=== PATIENT | male | born 1965 | race Caucasian/White ===

== ENCOUNTER 2025-08-03 14:51 | Emergency (ER) | payer MEDICAID ==
[~2025-08-03] VITALS: Ht 182.9 cm; Wt 80.0 kg
--- NOTE | 2025-08-03 15:35 | RADIOLOGY REPORT ---
INDICATION: back pain TECHNIQUE: 4 views of the lumbar spine were obtained. COMPARISON: None FINDINGS: There are no acute fractures or subluxations. Grade 1 anterolisthesis of L5 on S1. Mild degenerative anterior osteophyte formation at multiple levels. IMPRESSION: No acute fracture or subluxation.
--- NOTE | 2025-08-03 15:46 | Physician Documentation ---
History of Present Illness ~ Chief Complaint: Back Pain Stated Complaint: BACK PAIN Time Seen by MD: 16:09 HPI MSE: This is a 59-year-old male that presents to the emergency department for evaluation of lumbosacral pain times several days. Patient denies incontinence of bowel or bladder numbness or tingling at this time. Maximum hurting for approximately 2-3 days at this time. Denies taking any medication to help with discomfort. Medication Reconciliation Allergies: Coded Allergies: No Known Allergies (Unverified , 08/03/25) Review of Systems ROS As stated above in the HPI, otherwise all systems are reviewed and negative. Physical Exam Physical Exam Vital Signs: Temperature: 97.3, Source: Oral, Heart Rate: 89, Respiratory Rate: 20, BP: 107/71, Pulse Oximetry: 99, Weight: 80.000 Oxygen Flow Rate: 0 Physical Exam VITALS: Reviewed and as above. GENERAL: Alert, no apparent distress. HEENT: Normocephalic, atraumatic, PERRL, EOMI, dry mucosa, no erythema RESPIRATORY: Lungs clear, normal breath sounds, no respiratory distress. CHEST: No accessory muscle use, no retractions CV: Regular rate, rhythm, no edema, no murmur, No: JVD GI: Soft, non-tender, bowels sounds present, no rebound, guarding, or rigidity BACK: No CVA tenderness, or swelling MUSCULOSKELETAL No deformities, no edema, positive leg raise consistent with sciatica or lumbosacral sprain. SKIN: Warm and dry, no rash NEURO: Oriented x4, No motor or sensory deficit PSYCH: Normal mood and affect, no agitation Progress Results/Orders Results/Orders Vital Signs 08/03/25 14:57 Temp 97.3 Pulse 89 Resp 20 B/P (MAP) 107/71 Pulse Ox 99 O2 Flow Rate 0 Medical Decision Making Findings This patient presents with back pain most consistent with lumbosacral sprain. Differential diagnoses includes lumbago versus musculoskeletal spasm / strain versus sciatica. Less likely sciatica as straight leg raise test was negative. No back pain red flags on history or physical. Presentation not consistent with malignancy (lack of history of malignancy, lack of B symptoms), fracture (no trauma, no bony tenderness to palpation), cauda equina (no bowel or urinary incontinence/retention, no saddle anesthesia, no distal weakness), AAA, viscus perforation, osteomyelitis or epidural abscess (no IVDU, vertebral tenderness), renal colic, pyelonephritis (afebrile, no CVAT, no urinary symptoms). Negative for any abnormal findings for any acute processes at this time. Patient will be given dose of Toradol for musculoskeletal pain and Tylenol for discomfort. Patient will follow up with primary care provider. Patient will return to the emergency department with any worsening of his current symptoms for any additional concerning symptoms we discussed here today i.e. inability control bowel or bladder increased pain inability to walk numbness tingling or concerning symptoms. Differential Dx:Considerations: Include: AAA, Aortic dissection, Appendicitis, Bowel obstruction, Cholelithiasis, Cholangitis, DJD, Fracture, Hepatitis, HNP, Musculoskeletal pain, Pancreatitis, Pyelonephritis, Renal infarction, Strain, Urinary obstruction, Urolithiasis, Urinary tract infection, Other Departure Disposition: HOME / SELF CARE / HOMELESS Impression: Primary Impression: Low back pain Additional Impressions: Strain of lumbar region Lumbosacral strain Condition: Stable Discharge Instructions: Acute Back Pain, Adult, Lumbosacral Strain, Sciatica Additional Instructions: This patient presents with back pain most consistent with lumbosacral sprain. Differential diagnoses includes lumbago versus musculoskeletal spasm / strain versus sciatica. Less likely sciatica as straight leg raise test was negative. No back pain red flags on history or physical. Presentation not consistent with malignancy (lack of history of malignancy, lack of B symptoms), fracture (no trauma, no bony tenderness to palpation), cauda equina (no bowel or urinary incontinence/retention, no saddle anesthesia, no distal weakness), AAA, viscus p erforation, osteomyelitis or epidural abscess (no IVDU, vertebral tenderness), renal colic, pyelonephritis (afebrile, no CVAT, no urinary symptoms). Negative for any abnormal findings for any acute processes at this time. Patient will be given dose of Toradol for musculoskeletal pain and Tylenol for discomfort. Patient will follow up with primary care provider. Patient will return to the emergency department with any worsening of his current symptoms for any additional concerning symptoms we discussed here today i.e. inability control bowel or bladder increased pain inability to walk numbness tingling or concerning symptoms. Referrals: NO PRIMARY CARE PROVIDER (PCP) Education Educated: Patient Educated regarding: diagnosis, treatment, need for follow up [facility] Aug 03, 2025 15:46
[2025-08-03] MEDS: ketorolac trometh 15mg/ml vial 15 MG/ML ML IM ONE (17:21)
[2025-08-03 17:35] VITALS: BP 109/70; PULSE 78; RESP 16; TEMP 97.3; O2SAT 99
== END 2025-08-03 17:37 | disposition home or self-care (01) ==
LOC: ER 14:56
DX: S39.012A Strain of muscle, fascia and tendon of lower back, initial encounter (principal); X58.XXXA Exposure to other specified factors, initial encounter; Y93.89 Activity, other specified; Y92.89 Other specified places as the place of occurrence of the external cause; Y99.8 Other external cause status
CPT/HCPCS: 72100; 96372; 99283; J1885

== ENCOUNTER 2025-08-05 06:31 | Emergency (ER) | payer MEDICAID ==
[~2025-08-05] VITALS: Ht 182.9 cm; Wt 75.0 kg
--- NOTE | 2025-08-05 07:03 | Physician Documentation ---
History of Present Illness ~ Chief Complaint: Back Pain Stated Complaint: HIP PAIN M ALS Time Seen by MD: 06:57 Mode of Arrival: EMS HPI 59-year-old male presenting with back pain The patient was seen here in the emergency department 2 days ago for similar symptoms, was felt to have musculoskeletal back pain, was treated with IM Toradol and Tylenol. He returns today by EMS. He reports severe left-sided low back pain. He is not able to stand up or walk. It is 10/10. It does radiate down the back of his buttocks and thigh to the knee. He reports intermittent numbness to his foot. Denies any trauma. No fevers. Medication Reconciliation Allergies: Coded Allergies: No Known Allergies (Unverified , 08/05/25) Scheduled Cyclobenzaprine* (Cyclobenzaprine*), 1 TAB PO TID Lidocaine (Lidoderm), 1 PATCH TOP DAILY Methylprednisolone (Medrol Dosepak), 0 PO UD Review of Systems Constitutional: Denies: fever Neurological: Reports: left sided numbness Musculoskeletal: Reports: back pain Physical Exam Physical Exam Vital Signs: Temperature: 97.9, Source: Oral, Heart Rate: 62, Respiratory Rate: 18, BP: 136/85, Pulse Oximetry: 99, Weight: 75.000 Oxygen Flow Rate: 0 Physical Exam General: This is an uncomfortable appearing middle-aged man lying on his side, not really moving HEENT: Atraumatic, oropharynx is moist Heart: Regular rate and rhythm, normal-appearing peripheral perfusion Lungs: normal work of breathing, normal oxygen saturation on room air Neck: The patient has significant tenderness on palpation of the paralumbar muscles bilateral, with no overlying rash Extremities: Warm and well-perfused. He reports mild subjective numbness to the left foot Neuro: Alert and oriented Psychiatric: Appears very uncomfortable and in mild distress Progress Results/Orders Results/Orders Completed Orders - MARCELA KISER MD Lidocaine 5% Patch (Lidoderm 5% Patch) (08/05/25 07:10) Ketorolac Trometh 15mg/Ml Vial (Toradol (08/05/25 07:10) Diazepam Inj (Valium Inj) (08/05/25 07:10) Urinalysis, Cult If Indicated (08/05/25 12:00) Acetaminophen 325mg Tablet (Tylenol Tabl (08/05/25 13:25) Cyclobenzaprine Tablet (Flexeril Tablet) (08/05/25 13:25) Vital Signs 08/05/25 08/05/25 08/05/25 08/05/25 06:31 06:40 07:23 07:30 Temp 97.9 Pulse 62 62 Resp 18 20 18 B/P (MAP) 136/85 116/64 (81) Pulse Ox 99 95 O2 Flow Rate 0 0 08/05/25 08/05/25 08/05/25 08/05/25 08:26 09:00 10:00 11:02 Pulse 50 60 60 53 Resp 16 18 18 14 B/P (MAP) 105/70 (82) 150/72 (98) 119/74 (89) 123/74 (90) Pulse Ox 97 94 96 99 O2 Flow Rate 3.0 0 0 0 08/05/25 08/05/25 12:00 13:38 Temp 97.9 Pulse 60 60 Resp 16 16 B/P (MAP) 137/67 (90) 137/67 Pulse Ox 94 96 O2 Flow Rate 0 Laboratory Tests Test 08/05/25 12:16 Urine Specimen Description Cln catch midstream Urine Color Yellow Urine Clarity Clear Urine pH 6.0 Urine Specific [place] 1.015 Urine Protein Negative Urine Glucose (UA) Negative Urine Ketones Negative Urine Occult Blood Negative Urine Nitrite Negative Urine Bilirubin Negative Urine Urobilinogen 1.0 Urine Leukocyte Esterase Negative Urine Culture Indicated Not ind Volume Urine Centrifuged 10 ml Urine Comment Medical Decision Making Differential Diagnosis Differential diagnosis includes muscle spasm, sciatica, herniated disc, other radiculopathy. I doubt epidural abscess or cauda equina Assessment The patient presents with low back pain. He was seen recently for similar. On exam, this appears consistent with a low back muscle strain. He does not have any neurologic changes or other findings to suggest cauda equina or epidural abscess. He was given symptomatic treatment with good improvement. The patient then refused to get up and walk due to the pain, but after he was offered food he was noted to ambulate without significant limitation. There appears to be some component of secondary gain to his presentation related to his homelessness.. He will be discharged with a muscle relaxant and anti- inflammatories. Departure Time of Disposition: 12:38 Disposition: 01 HOME / SELF CARE / HOMELESS Impression: Primary Impression: Lumbosacral strain Condition: Improved Discharge Instructions: Lumbosacral Strain Referrals: NO PRIMARY CARE PROVIDER (PCP) Prescriptions Methylprednisolone (Medrol Dosepak) 4 Mg Tab.ds.pk 0 PO UD, #21 TAB 0 Refills take 6 Pills Day 1, 5 Pills Day 2, 4 Pills Day 3, 3 Pills Day 4, 2 Pills Day 5 and 1 pill Day 6 Prov: MARCELA KISER MD 08/05/25 Lidocaine (Lidoderm) 5 % Adh..patch 1 PATCH TOP DAILY for 10 Days, #10 PATCH 0 Refills may wear up to 12 hours Prov: MARCELA KISER MD 08/05/25 Cyclobenzaprine* (Cyclobenzaprine*) 10 Mg Tablet 1 TAB PO TID, #15 TAB 1 Refill Prov: MARCELA KISER MD 08/05/25 Education Educated: Patient Educated regarding: diagnosis, treatment, need for follow up Signature Scribe Signature: virgil Attestation: MARCELA Valentine MD Aug 05, 2025 07:03
[2025-08-05] MEDS: diazepam inj 5 MG/ML inj. IV ONE (07:23)
[2025-08-05] MEDS: ketorolac trometh 15mg/ml vial 15 MG/ML ML IV ONE (07:24)
[2025-08-05 12:24] LABS: LEUKOCYTE ESTERASE ,URINE NEGATIVE (Neg); NITRITES, URINE NEGATIVE (Neg); OCCULT BLOOD,URINE NEGATIVE (Neg)
[2025-08-05 12:30] LABS: UA COLLECTION TYPE CLN CATCH MIDSTREAM
[2025-08-05] MEDS ORDERED: CYCL-1 PO (12:46)
[2025-08-05] MEDS ORDERED: LIDO-52 TOP (12:46)
[2025-08-05] MEDS ORDERED: METH4TAB81 PO (12:47)
[2025-08-05 13:38] VITALS: BP 137/67; PULSE 60; RESP 16; TEMP 97.9; O2SAT 96
== END 2025-08-05 13:11 | disposition home or self-care (01) ==
LOC: ER 06:31
DX: S39.012A Strain of muscle, fascia and tendon of lower back, initial encounter (principal); X58.XXXA Exposure to other specified factors, initial encounter; Y93.89 Activity, other specified; Y92.89 Other specified places as the place of occurrence of the external cause; Y99.8 Other external cause status
CPT/HCPCS: 81003; 96374; 96375; 99285; J1885; J3360

== ENCOUNTER 2025-10-10 17:23 | Inpatient (IN) | payer MEDICAID ==
[~2025-10-10] VITALS: Ht 182.9 cm; Wt 86.2 kg
[~2025-10-10 17:23] MED LIST: CYCL-1 PO; LIDO-52 TOP; METH4TAB81 PO
--- NOTE | 2025-10-10 20:46 | Physician Documentation ---
History of Present Illness ~ General Chief Complaint: Abnormal Lab(s) Stated Complaint: INFECTION Time Seen by MD: 20:35 Mode of Arrival: EMS History of Present Illness Initial Comments Patient presents to the ER via EMS and says that he does not want to be triaged. Says that he came from [place] and had an elevated white count. He was told to that he was sent here for concerns over lower back osteomyelitis from the [place] where he has resident for the last two months Medication Reconciliation Allergies: Coded Allergies: No Known Allergies (Unverified , 10/10/25) Scheduled Cyclobenzaprine* (Cyclobenzaprine*), 1 TAB PO TID Lidocaine (Lidoderm), 1 PATCH TOP DAILY Methylprednisolone (Medrol Dosepak), 0 PO UD Review of Systems All Other Systems at this time: Reviewed and Negative Physical Exam Physical Exam Vital Signs: Temperature: 98.4, Source: Oral, Heart Rate: 92, Respiratory Rate: 16, BP: 132/87, Pulse Oximetry: 97, Weight: 86.200 Oxygen Flow Rate: 0 Progress Results/Orders Results/Orders Orders - JACK BUCKNER CLERK TO JUSTICE Ct Lumbar Spine (10/10/25 21:33) Culture Blood (10/10/25 22:21) Page Hospitalist (10/10/25 ) Completed Orders - JACK BUCKNER CLERK TO JUSTICE [place] (10/10/25 20:40) CMP (10/10/25 20:40) Cbc/Diff (10/10/25 20:40) [place] (10/10/25 21:25) Procalcitonin (10/10/25 21:28) Urinalysis, Cult If Indicated (10/10/25 21:28) Ct Lumbar Spine (10/10/25 21:33) Vancomycin*Pharmacy To Dose* (Vancomycin (10/10/25 22:20) Ceftriaxone 2gm/D5w 50ml Bag (Rocephin 2 (10/10/25 22:20) Morphine 4mg/Ml Inj. (Morphine Inj.) (10/10/25 22:25) Normal Saline 1000ml (0.9% Sodium Chlori (10/10/25 22:25) Morphine 2mg/Ml Inj. (Morphine Inj.) (10/10/25 22:45) Vital Signs 10/10/25 10/10/25 10/10/25 10/10/25 17:25 20:36 20:37 22:17 Temp 98.4 98.4 Pulse 86 92 79 Resp 16 16 16 B/P (MAP) 148/97 132/87 (102) 139/84 (102) Pulse Ox 98 97 98 O2 Flow Rate 0 0 0 10/10/25 23:01 Temp 98.4 Pulse 92 Resp 16 B/P (MAP) 139/87 (104) Pulse Ox 96 O2 Flow Rate 0 Laboratory Tests Test 10/10/25 20:52 10/10/25 21:54 10/10/25 22:07 White Blood Count 16.6 H Red Blood Count 4.06 L Hemoglobin 12.3 L Hematocrit 36.4 L Mean Corpuscular Volume 89.6 Mean Corpuscular Hemoglobin 30.2 Mean Corpuscular Hemoglobin Concent 33.7 Red Cell Distribution Width 17.2 H Platelet Count 532 H Mean Platelet Volume 6.6 L Neutrophils (%) (Auto) 54.0 Lymphocytes (%) (Auto) 29.6 Monocytes (%) (Auto) 14.4 H Eosinophils (%) (Auto) 1.1 Basophils (%) (Auto) 0.9 Neutrophils # (Auto) 9.0 H Lymphocytes # (Auto) 4.9 H Monocytes # (Auto) 2.4 H Eosinophils # (Auto) 0.2 Basophils # (Auto) 0.2 CBC Comment Sodium Level 139 Potassium Level 3.5 Chloride Level 100 Carbon Dioxide Level 31.6 Anion Gap 7 L Blood Urea Nitrogen 12 Creatinine 0.90 Estimated GFR/1.73 m2 86 BUN/Creatinine Ratio 13.3 Glucose Level 121 H Lactic Acid Level 0.9 0.7 Calcium Level 8.7 Total Bilirubin 0.8 Aspartate Amino Transf (AST/SGOT) 29 Alanine Aminotransferase (ALT/SGPT) 37 Alkaline Phosphatase 148 H Total Protein 7.9 Albumin 2.7 L Globulin 5.2 H Albumin/Globulin Ratio 0.5 L Procalcitonin 0.05 Chemistry Comments Urine Specimen Description Non-specified Urine Color Straw Urine Clarity Clear Urine pH 6.0 Urine Specific [place] <=1.005 Urine Protein Negative Urine Glucose (UA) Negative Urine Ketones Negative Urine Occult Blood Negative Urine Nitrite Negative Urine Bilirubin Negative Urine Urobilinogen 0.2 Urine Leukocyte Esterase Negative Urine Culture Indicated Not ind Volume Urine Centrifuged 10 ml Urine Comment Medical Decision Making Additional information obtaine: N/A Findings Patient presented with labs that were having not elevated white blood cell count. I ordered a CAT scan in his lumbar region which indicated a vicious spray osteomyelitis in his oak or a them that there of this time I am going to start him on oral antibiotics and pain med has been admitted to the hospital Differential Diagnosis t Departure Disposition: 09 ADMITTED INPATIENT Impression: Primary Impression: Abnormal laboratory test result Additional Impression: Osteomyelitis Referrals: NO PRIMARY CARE PROVIDER (PCP) Signature Scribe Signature: h Attestation: Scribed for Jack Buckner Shank Faker by Jack Sebastian NP . 10/10/25 23:06 JACK BUCKNER NP Oct 10, 2025 20:46
[2025-10-10 20:57] LABS: MEAN PLATELET VOLUME 6.6 FL (7.4-10.4)
[2025-10-10 20:59] LABS: RED CELL DISTRIBUTION WIDTH 17.2 % (11.5-14.5)
[2025-10-10 21:14] LABS: CREATININE 0.90 MG/DL (0.60-1.10); TOTAL CARBON DIOXIDE 31.6 MMOL/L (24-32); eCRCL 95 ML/MIN; eGFR 86 ML/MIN
--- NOTE | 2025-10-10 22:13 | RADIOLOGY REPORT ---
Exam: CT CT LUMBAR SPINE DATE OF SERVICE: 10/10/2025 09:40 PM HISTORY: concerns for osteo mylitis COMPARISON: DI LUMBAR SPINE LIMITED on DOS: 08/03/25 TECHNIQUE: Multiple axial CT images of the lumbosacral spine were obtained. Radiation Dose Information: CT Dose: CTDI volume is 24 mGy. Dose-length product is 919 mGy*cm Findings: Multilevel degenerative changes. No acute fracture. Diffuse endplate irregularities at L4-5 associated with diffuse paravertebral edema /stranding extending into prevertebral region and into the adjacent psoas musculature. Findings raising suspicion for discitis osteomyelitis. No significant associated height loss. Limited evaluation for fluid collection on this noncontrast study. Underlying canal stenosis not well assessed on CT. Excreted contrast within the bladder. IMPRESSION: Findings suspicious for discitis osteomyelitis at L4-Recommend contrast-enhanced MRI lumbar spine to assess for possible underlying epidural abscess and associated canal stenosis.
[2025-10-10 22:41] LABS: LEUKOCYTE ESTERASE ,URINE NEGATIVE (Neg); NITRITES, URINE NEGATIVE (Neg); OCCULT BLOOD,URINE NEGATIVE (Neg)
[2025-10-10] MEDS: morphine 4 MG/ML inj SYRINge IV ONE (22:44)
[2025-10-10 22:58] LABS: UA COLLECTION TYPE NON-SPECIFIED
[2025-10-10] MEDS ORDERED: mag hydrox/Alum hydrox/simeth 30ml oral suspension PO PRN (23:00)
[2025-10-10] MEDS ORDERED: magnesium sulf-water 2g/50mL 50 ML IV PRN (23:00)
[2025-10-10] MEDS ORDERED: magnesium sulf-water 4G/100mL 100 ML IV PRN (23:00)
[2025-10-10] MEDS ORDERED: ondansetron/PF 4mg/2ml inj IV PRN (23:00)
[2025-10-10] MEDS ORDERED: magnesium hydroxide 30ml (MOM) UD suspension PO PRN (23:00)
[2025-10-10] MEDS ORDERED: magnesium Cl slow-release 64mg tablet PO PRN (23:00)
[2025-10-10] MEDS ORDERED: potassium Cl 20 mEq SR tablet PO PRN ×2 (23:00)
[2025-10-10] MEDS ORDERED: potassium Cl 40MEQ/1/2NS 520ml 520 ML IV PRN (23:00)
[2025-10-10] MEDS: normal saline 1000ML IV soln IVB ONE (23:05)
[2025-10-10] MEDS: CefTRIAXone 2gm/D5W 50ml BAG 50 ML IV ONE (23:06)
[2025-10-10] MEDS: PERFLUTREN PROTEIN-A MICROSPHR (Optison) 0.22 MG/ML 3ML VIAL IV ONE (23:13)
[2025-10-11 00:16] LABS: URINE AMPHETAMINE SCREEN NEGATIVE (Neg); URINE BARBITUATE SCREEN NEGATIVE (Neg); URINE BENZODIAZEPINES SCREEN NEGATIVE (Neg); URINE CANNABINOID SCREEN NEGATIVE (Neg); URINE COCAINE SCREEN NEGATIVE (Neg); URINE METHADONE SCREEN NEGATIVE (Neg); URINE OPIATE SCREEN NEGATIVE (Neg); URINE PHENCYCLIDINE SCREEN NEGATIVE (Neg)
[2025-10-11 00:48] VITALS: BP 154/87; PULSE 59; RESP 19; TEMP 98.9; O2SAT 95
[2025-10-11] MEDS ORDERED: HYDROcodone/acetaminophen 5mg/325mg tablet PO PRN (01:05)
[2025-10-11] MEDS: normal saline 1000ml 1,000 ML IV SCH (01:13)
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
[2025-10-11] MEDS: VANCOMYCIN/H2O 1.5g/300mL PB 300 ML IV ONE ×2 (03:23)
[2025-10-11 07:23] LABS: MEAN PLATELET VOLUME 7.7 FL (7.4-10.4); RED CELL DISTRIBUTION WIDTH 16.8 % (11.5-14.5)
[2025-10-11] MEDS: docusate sod 100mg capsule PO SCH (07:32)
[2025-10-11] MEDS: CEFEPIME 2gm in D5W 50mL 50 ML IV SCH (07:32)
[2025-10-11] MEDS: heparin, porcine 5000 units/ml vial SQ SCH (07:33)
[2025-10-11 07:46] VITALS: RESP 16; O2SAT 95
[2025-10-11 07:49] LABS: CHOL/HDL RATIO 2.5 (0.00-4.99); CREATININE 0.72 MG/DL (0.60-1.10); LDL CHOLESTEROL 66 MG/DL (50-100); TOTAL CARBON DIOXIDE 26.3 MMOL/L (24-32); eCRCL 118 ML/MIN; eGFR > 90 ML/MIN
[2025-10-11] MEDS: K and/or MAG REPLACEMENT MC SCH (08:00)
[2025-10-11 09:31] LABS: EOSINOPHILS % (MANUAL) 2.0 % (0-6); LYMPHOCYTES % (MANUAL) 28.0 % (21-51); MONOCYTES % (MANUAL) 12.0 % (2-12); NEUTROPHILS % (MANUAL) 58.0 % (42-75); PLATELET ESTIMATE INCREASED
[2025-10-11 09:48] VITALS: BP 135/73; PULSE 72; RESP 16; TEMP 99; O2SAT 96
[2025-10-11] MEDS: vancomycin/NS 1 GM ADD-VANTAGE 250 ML IV SCH (11:05)
[2025-10-11] MEDS ORDERED: vancomycin/NS 1 GM ADD-VANTAGE 250 ML IV SCH (15:00)
--- NOTE | 2025-10-11 15:38 | RADIOLOGY REPORT ---
DI FACIAL BONES,1-2VWS Comparison: None Indication: check for metal for MRI Findings: Limited radiograph of the facial bones. No acute displaced fracture. Fixation hardware of the left mandible. Left frontal craniotomy postsurgical changes noted. Asymmetric decreased aeration of the right maxillary sinus could be from underlying fluid or could be artifactual from overlying structures. IMPRESSION: Postsurgical changes with left mandibular and left frontal craniotomy metallic hardware. No acute displaced fracture. If there is persistent clinical concern for acute fracture, recommend cross-sectional imaging for further evaluation.
[2025-10-11] MEDS: HYDROcodone/acetaminophen 10/325mg tab PO PRN (16:55)
--- NOTE | 2025-10-11 17:58 | CARDIOLOGY REPORT ---
APPROVED REPORT EXAM: Comprehensive 2D, Doppler, and color-flow Echocardiogram. 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 3.90 cm IVC 24.40 mm FS (%) 30.0 % SV 41.2 ml CO 3.3 L/min M-Mode Dimensions MV EPSS 0.5 (<0.5cm) Aortic Valve AoV Peak Ricardo. 158.6 cm/s AoV VTI 29.3 cm AO Peak GR. 10.1 mmHg AO Mean GR. 6 mmHg LVOT VTI 24.80 cm LVOT Peak Ricardo. 140.0 cm/s EULALIO(VTI)/BSA 3.46 cm2/m2 EULALIO (VTI) 3.46 cm2 AV DI 0.85 % Mitral Valve MV E Velocity 77.0 cm/s MV Peak Gr. 3 mmHg MV DECEL TIME 220 ms MV A Velocity 72.4 cm/s MV PHT 60 ms E/A Ratio 1.1 MVA (PHT) 3.67 cm2 MV VMax 87.0 cm/s TDI Medial E' P. V 12.65 cm/s E/Medial E' 6.1 Tricuspid Valve RAP ESTIMATE 10 mmHg Pulmonary Vein S1 Velocity 56.5 cm/s D2 Velocity 45.4 cm/s PVa Velocity 31.7 cm/s PVa Duration 80 msec LEFT VENTRICLE Normal LV size and wall thickness. Overall systolic function is normal. LVEF is 60%. RIGHT VENTRICLE RV appears normal in size and contractility. ATRIA The left atrium size is normal. AORTIC VALVE Trileaflet AV appears sclerotic without stenosis. No insufficiency. MITRAL VALVE MV is thickened with no annular calcification or stenosis. TRICUSPID VALVE The tricuspid valve is normal in structure. Trace tricuspid regurgitation. PULMONIC VALVE The pulmonary valve is normal in structure. Trace pulmonic insufficiency. GREAT VESSELS The aortic root is normal in size. The ascending aorta is measured at 3.9 cm. IVC is dilated and collapses greater than 50% with inspiration. PERICARDIUM There is no pericardial effusion. Other Information Study Quality: Adequate Conclusion Normal LV size and wall thickness. Overall systolic function is normal. LVEF is 60%. RV appears normal in size and contractility. The left atrium size is normal. Trileaflet AV appears sclerotic without stenosis. No insufficiency. MV is thickened with no annular calcification or stenosis. The tricuspid valve is normal in structure. Trace tricuspid regurgitation. The pulmonary valve is normal in structure. Trace pulmonic insufficiency. The ascending aorta is measured at 3.9 cm. There is no pericardial effusion.
[2025-10-11 18:00] VITALS: BP 135/74; PULSE 74; RESP 18; TEMP 98.9; O2SAT 97
--- NOTE | 2025-10-11 19:00 | PROGRESS NOTE- Residence ---
Progress Note - Resident Providers to CC Resident Creating Document: SANTHOSH ROJAS, ARTURO CC: RUPA RICHEY MD ~ Antibiotic Timeout Antibiotic Ordered?: Yes Subjective Patient was seen and examined at bedside. Patient states that he continues to have chronic low back pain despite being treated with antibiotics for six weeks. Patient stated that he got an MRI with contrast [facility], we tried to get the faxed but could not get it. Therefore we requested for an MRI in the hospital which was not done. The MRI people were initially looking at his sheets to see if phase MRI compatible, later was not able to get hold of them. Objective Vital Signs Date Time Temp Pulse Resp B/P (MAP) Pulse Ox O2 Delivery O2 Flow Rate FiO2 10/11/25 18:00 98.9 74 18 135/74 (94) 97 Room Air 10/11/25 07:46 0.0 Result Diagram: 10/11/25 0629 10/12/25 0230 General: Alert, awake, oriented, not in acute distress HEENT: PERRLA, no icterus, pallor, lymphadenopathy, carotid bruit Respiratory system: Bilateral vesicular breath sounds heard, no adventitious breath sounds CVS: S1-S2 heard, no murmurs/rubs/gallop GI: Soft, nontender, no organomegaly, no guarding/rigidity, bowel sounds present Neuro: Tenderness to palpation on the lower back, No focal neurological deficits present Mental status exam: alert and consciousness, orientation, memory, speech - Cranial nerve test: Cranial nerves 2-12 intact - Motor system: Nutrition, Tone 3+, Power 5/5, no involuntary movements - Sensory system: Intact - Reflex testing: Biceps, triceps and knee reflexes 2+ - Cerebellar: Normal Extremities: No edema cyanosis clubbing/deformities Skin: Warm and dry Assessment Assessment A 60-year-old male with PMH of HTN, recent lumbar osteomyelitis status post six week antibiotic course presented to the ED with acute back pain. Patient is admitted for the evaluation management of possible epidural abscess. Plan Plan Lumbar Osteomyelitis (L4) Epidural abscess, rule out-less likely Leukocytosis with left shift, downtrending Continue IV vancomycin plus cefepime (day two) Mildly elevated ESR one normal procalcitonin level With blood cultures Continue pain management with IV morphine as needed; continue lidocaine patch Follow up with MRI, unfortunately could not be done as the MRI were not responding after they have checked with the his compatibility Utox negative Consulted ID, awaiting recommendations Hypertension Blood pressure seems to be in good control Continue to monitor vitals Past Surgical and Traumatic History History of multiple amputations and prior orthopedic surgeries. No active complications No functional limitations Code status: Full code DVT Prophylaxis: Heparin SQ Nutrition: Regular diet Disposition: Awaiting ID recommendations. Santhosh Rojas MD Internal Medicine, PGY 2 Addendum pt with recent osteo, comes in c/o worsening back pain; awaiting mri Date of Service: Oct 11, 2025 Billing Provider: RUPA RICHEY MD Common Visit Codes: [id number] INP/OBS CARE(HIGH) SANTHOSH ROJAS, RES Oct 11, 2025 19:00 RUPA RICHEY MD Oct 12, 2025 06:47
[2025-10-11 22:00] VITALS: BP 118/67; PULSE 77; RESP 20; TEMP 97.8; O2SAT 96
[2025-10-12] MEDS: VANCOMYCIN LEVEL IV ONE (02:49)
[2025-10-12 02:58] LABS: CREATININE 0.68 MG/DL (0.60-1.10); TOTAL CARBON DIOXIDE 29.2 MMOL/L (24-32); eCRCL 125 ML/MIN; eGFR > 90 ML/MIN
[2025-10-12 06:00] VITALS: BP 98/52; PULSE 73; RESP 19; TEMP 98.1; O2SAT 94
[2025-10-12 10:00] VITALS: BP 102/50; PULSE 83; RESP 16; TEMP 98; O2SAT 93
[2025-10-12 10:52] LABS: MEAN PLATELET VOLUME 7.7 FL (7.4-10.4); RED CELL DISTRIBUTION WIDTH 17.0 % (11.5-14.5)
[2025-10-12] MEDS: diazepam inj 5 MG/ML inj. IV ONE (12:30)
--- NOTE | 2025-10-12 15:34 | PROGRESS NOTE- Residence ---
Progress Note - Resident Providers to CC Resident Creating Document: KALI BRANHAM RES ~ Central Line/PICC still needed: No Caicedo-Non Protocol Caicedo Indications Met/Not Met: F/C Indications Not Met Antibiotic Timeout Antibiotic Ordered?: Yes Subjective No new acute overnight events. Patient complains of some mild pain in his right lower extremity but has no other new complaints. No new febrile episodes. Performed MRI today. Objective Vital Signs Date Time Temp Pulse Resp B/P (MAP) Pulse Ox O2 Delivery O2 Flow Rate FiO2 10/12/25 11:35 18 10/12/25 10:00 98.0 83 102/50 (67) 93 Room Air 10/12/25 07:45 0.0 Result Diagram: 10/12/25 0958 10/12/25 0230 General: Awake and Alert, no acute distress. HEENT: Conjunctiva pink, Sclera clear, Mucus Membranes moist. Neck: Supple without masses and tenderness. Resp: Unlabored. Lungs clear to auscultation bilaterally. Heart: Regular Rate and rhythm, normal S1 and S2 without murmur, rub or gallop. Abdomen: Soft and non tender no organomegaly Extremities: No cyanosis,clubbing or edema. Amputated 3rd 4th and 5th 1st MCP joints. Skin: Warm and Dry. Diffuse mildly pruritic urticarial rash noted across the lower limbs, chest, and abdomen Assessment Assessment A 60-year-old male with PMH of HTN, recent lumbar osteomyelitis status post six week antibiotic course presented to the ED with acute back pain. Patient is admitted for the evaluation management of possible epidural abscess. Plan Plan Lumbar Osteomyelitis (L4) Epidural abscess, rule out-less likely Leukocytosis with left shift, downtrending Continue IV vancomycin plus cefepime (day two) Mildly elevated ESR one normal procalcitonin level With blood cultures Continue pain management with IV morphine as needed; continue lidocaine patch Follow up with MRI, unfortunately could not be done as the MRI were not responding after they have checked with the his compatibility Utox negative Consulted ID, awaiting recommendations Hypertension Blood pressure seems to be in good control Continue to monitor vitals Past Surgical and Traumatic History History of multiple amputations and prior orthopedic surgeries. No active complications No functional limitations Code status: Full code DVT Prophylaxis: Heparin SQ Nutrition: Regular diet Disposition: Awaiting ID recommendations. Santhosh Valdivia MD Internal Medicine, PGY 2 KALI BRANHAM, RES Oct 12, 2025 15:34
--- NOTE | 2025-10-12 17:32 | RADIOLOGY REPORT ---
EXAM: MR MRI LUMBAR SPINE INDICATION: For osteomyelitis TECHNIQUE: Multiplanar, multisequence MR images of the lumbar spine were obtained without the administration of IV contrast. COMPARISON: CT CT LUMBAR SPINE on DOS: 10/10/25 FINDINGS: [ANATOMY]: Five lumbar-type vertebral bodies are present. The most inferior well-formed disc space will be referred to as L5-S1 for purposes of numbering in this report. Exaggerated lumbar lordosis in the lower lumbar spine. [VERTEBRAL BODIES]: Significant abnormal bone marrow signal centered at L4-L5 with prominent surrounding paravertebral edema compatible with discitis osteomyelitis. Bone marrow edema and osteomyelitis involvement extending posteriorly along bilateral pedicles and lamina. Small amount of opposing bone m arrow edema along the L4 and L5 spinous processes. Subsequent intervertebral disc height loss and fluid signal at L4-5. [SPINAL CANAL]: The conus medullaris is normal in signal and morphology, terminating at the L1-L2 level. Mild relative circumferential spinal canal narrowing at L4-5. No visualized epidural abscess. [FACETS]: Yyri-[id number] bilateral facet degenerative change at L4-5 and L5-S1 [OTHER]: Baag-ph-ryjgidgw bilateral L4-5 and L5-S1 foraminal narrowing. Bilateral lower paraspinous muscular edema and minimal fatty atrophy which may be seen in the setting of myositis and/or denervation edema IMPRESSION: 1. Discitis osteomyelitis at L4-5 with significant surrounding paravertebral edema. Bilateral pedicle and lamina extension with the additional extension into the spinous processes. 2. No epidural abscess. 3. Mild relative circumferential spinal canal narrowing at L4-5.
[2025-10-12 18:00] VITALS: BP 109/53; PULSE 73; RESP 16; TEMP 98.7; O2SAT 95
[2025-10-12] MEDS: Ensure Enlive - 237ML PO SCH (18:30)
--- NOTE | 2025-10-12 18:30 | PROGRESS NOTE- Residence ---
Progress Note - Resident Providers to CC Resident Creating Document: KALI ENRIQUE RES ~ Central Line/PICC still needed: No Caicedo-Non Protocol Caicedo Indications Met/Not Met: F/C Indications Not Met Antibiotic Timeout Antibiotic Ordered?: Yes Subjective No new acute overnight events. Patient complains of some mild pain in his right lower extremity but has no other new complaints. No new febrile episodes. Performed MRI today after confirming the compatibility of the metal plate in the jaw. Objective Vital Signs Date Time Temp Pulse Resp B/P (MAP) Pulse Ox O2 Delivery O2 Flow Rate FiO2 10/12/25 11:35 18 10/12/25 10:00 98.0 83 102/50 (67) 93 Room Air 10/12/25 07:45 0.0 Result Diagram: 10/12/25 0958 10/12/25 0230 General: Awake and Alert, no acute distress. HEENT: Conjunctiva pink, Sclera clear, Mucus Membranes moist. Neck: Supple without masses and tenderness. Resp: Unlabored. Lungs clear to auscultation bilaterally. Heart: Regular Rate and rhythm, normal S1 and S2 without murmur, rub or gallop. Abdomen: Soft and non tender no organomegaly Extremities: No cyanosis,clubbing or edema. Amputated 3rd 4th and 5th 1st MCP joints. Skin: Warm and Dry. Diffuse mildly pruritic urticarial rash noted across the lower limbs, chest, and abdomen Assessment Assessment A 60-year-old male with PMH of HTN, recent lumbar osteomyelitis status post six week antibiotic course presented to the ED with acute back pain and is currently being managed for osteomyelitis of the L4-L5 region. Plan Plan Lumbar Osteomyelitis and diskitis (L4-L5) Epidural abscess ruled out Leukocytosis with left shift, downtrending Continue IV vancomycin- day three. Discontinued cefepime by ID Blood cultures negative in 24 hours Continue pain management with IV morphine and Percocet as needed; continue lidocaine patch Consulted ID, awaiting recommendations Hypertension Blood pressure seems to be in good control Continue to monitor vitals Past Surgical and Traumatic History History of multiple amputations and prior orthopedic surgeries. No active complications No functional limitations Moderate protein energy malnutrition: Switch to regular diet, encourage p.o. intake Ensure TID Code status: Full code DVT Prophylaxis: Heparin SQ Nutrition: Regular diet Disposition: Patient is ambulatory. We will await recommendations on duration of antibiotic therapy to discharge the patient. Patient is homeless and will be discharged back to the admission when cleared by IDPau Enrique PGY3, Internal medicine resident Patient was seen, examined and discussed with the attending MD, Dr. Richey Date of Service: Oct 12, 2025 Billing Provider: RUPA RICHEY MD Common Visit Codes: [id number] INP/OBS CARE(HIGH) KALI ENRIQUE, ARTURO Oct 12, 2025 18:30 RUPA RICHEY MD Oct 13, 2025 07:49
[2025-10-12 22:00] VITALS: BP 115/69; PULSE 77; RESP 16; TEMP 98.3; O2SAT 96
[2025-10-13 06:00] VITALS: BP 140/78; PULSE 75; RESP 16; TEMP 98.3; O2SAT 94
[2025-10-13 06:29] LABS: MEAN PLATELET VOLUME 7.5 FL (7.4-10.4); RED CELL DISTRIBUTION WIDTH 16.8 % (11.5-14.5)
[2025-10-13 06:46] LABS: CREATININE 0.68 MG/DL (0.60-1.10); TOTAL CARBON DIOXIDE 28.7 MMOL/L (24-32); eCRCL 125 ML/MIN; eGFR > 90 ML/MIN
[2025-10-13 08:47] VITALS: RESP 16; O2SAT 94
[2025-10-13 10:00] VITALS: BP 105/61; PULSE 82; RESP 17; TEMP 98.2; O2SAT 96
--- NOTE | 2025-10-13 15:39 | PROGRESS NOTE- Residence ---
Progress Note - Resident Providers to CC Resident Creating Document: SANTHOSH ROJAS, ARTURO CC: RUPA RICHEY MD ~ Antibiotic Timeout Antibiotic Ordered?: Yes Subjective Patient was seen and examined at bedside. Patient complains of a rash that developed over the bilateral knees. Patient also states that his pain in the back a still not well-controlled. Objective Vital Signs Date Time Temp Pulse Resp B/P (MAP) Pulse Ox O2 Delivery O2 Flow Rate FiO2 10/13/25 12:17 16 10/13/25 10:00 98.2 82 105/61 (76) 96 Room Air 10/12/25 20:00 0.0 Result Diagram: 10/14/2549 10/14/25 0549 General: Alert, awake, oriented, not in acute distress HEENT: PERRLA, no icterus, pallor, lymphadenopathy, carotid bruit Respiratory system: Bilateral vesicular breath sounds heard, no adventitious breath sounds CVS: S1-S2 heard, no murmurs/rubs/gallop GI: Soft, nontender, no organomegaly, no guarding/rigidity, bowel sounds present Neuro: Tenderness to palpation on the lower back, No focal neurological deficits present Mental status exam: alert and consciousness, orientation, memory, speech - Cranial nerve test: Cranial nerves 2-12 intact - Motor system: Nutrition, Tone 3+, Power 5/5, no involuntary movements - Sensory system: Intact - Reflex testing: Biceps, triceps and knee reflexes 2+ - Cerebellar: Normal Extremities: Bilateral erythematous small papules present in clusters with the itching or tenderness present in the knee region. Skin: Warm and dry Assessment Assessment A 60-year-old male with PMH of HTN, recent lumbar osteomyelitis status post six week antibiotic course presented to the ED with acute back pain and is currently being managed for osteomyelitis of the L4-L5 region. Plan Plan Lumbar Osteomyelitis and diskitis (L4-L5) Epidural abscess ruled out Leukocytosis with left shift, downtrending Continue IV vancomycin- (day 4). Initially was on cefepime too, was discontinued by ID Blood cultures negative in 24 hours Continue pain management with IV morphine and Percocet as needed; continue lidocaine patch Consulted ID, awaiting recommendations Hypertension Blood pressure seems to be in good control Continue to monitor vitals Past Surgical and Traumatic History History of multiple amputations and prior orthopedic surgeries. No active complications No functional limitations Moderate protein energy malnutrition: Switch to regular diet, encourage p.o. intake Ensure TID Code status: Full code DVT Prophylaxis: Heparin SQ Nutrition: Regular diet Disposition: Awaiting recommendation from ID on the duration of antibiotics. Patient will be ready for discharge to [facility] or home based on the antibiotic choice and duration. Santhosh Rojas MD Internal Medicine, PGY 2 Addendum has new rash, monitor, related to cefepime? Date of Service: Oct 13, 2025 Billing Provider: RUPA RICHEY MD Common Visit Codes: [id number] INP/OBS CARE(HIGH) SANTHOSH ROJAS, RES Oct 13, 2025 15:39 RUPA RICHEY MD Oct 14, 2025 07:06
[2025-10-13 18:00] VITALS: BP 120/83; PULSE 70; RESP 18; TEMP 97.7; O2SAT 99
[2025-10-13 22:00] VITALS: BP 126/74; PULSE 74; RESP 16; TEMP 97.7; O2SAT 97
[2025-10-14 06:00] VITALS: BP 109/70; PULSE 60; RESP 20; TEMP 97.4; O2SAT 95
[2025-10-14 06:19] LABS: MEAN PLATELET VOLUME 7.3 FL (7.4-10.4); RED CELL DISTRIBUTION WIDTH 16.8 % (11.5-14.5)
[2025-10-14 06:32] LABS: CREATININE 0.69 MG/DL (0.60-1.10); TOTAL CARBON DIOXIDE 27.6 MMOL/L (24-32); eCRCL 123 ML/MIN; eGFR > 90 ML/MIN
[2025-10-14 07:02] LABS: EOSINOPHILS % (MANUAL) 10.0 % (0-6); LYMPHOCYTES % (MANUAL) 41.0 % (21-51); MONOCYTES % (MANUAL) 14.0 % (2-12); NEUTROPHILS % (MANUAL) 35.0 % (42-75); PLATELET ESTIMATE INCREASED
[2025-10-14 08:07] VITALS: RESP 20; O2SAT 95
[2025-10-14 10:00] VITALS: BP 122/77; PULSE 59; RESP 14; TEMP 98.1; O2SAT 97
[2025-10-14] MEDS: oxyCODONE IR 5mg (immed. release) tablet PO PRN (13:14)
[2025-10-14] MEDS ORDERED: OXYC1TAB17 PO (13:47)
--- NOTE | 2025-10-14 18:07 | DISCHARGE SUMMARY-Residence ---
Discharge Summary Providers to CC Resident Creating Document: PAIGE ROJAS, RES CC: RUPA RICHEY MD ~ Discharge Summary Admission Diagnosis: OSTEOMYLITIS Hospital Course DATE OF ADMISSION: 10/10/25 DATE OF DISCHARGE: 10/14/25 Discharge Diagnosis\Comment: Marrow osteomyelitis and diskitis (L4-L5 Epidural abscess, ruled out Leukocytosis with left shift, downtrending HTN Past surgical and traumatic history Moderate protein energy malnutrition Operations\Procedures: None Consultants: Dr. Hdz and Dr. Gamez (ID) Complications: None Condition on DC: Stable New Medications: Oxycodone Hcl/Acetaminophen (Oxycodone-Acetaminophen 10-325) 10 Mg-325 Mg Tablet 1 TAB PO QID PRN PRN for pain, #20 TAB Continued Medications: Cyclobenzaprine* (Cyclobenzaprine*) 10 Mg Tablet 1 TAB PO TID, #15 TAB 1 Refill Lidocaine (Lidoderm) 5 % Adh..patch 1 PATCH TOP DAILY for 10 Days, #10 PATCH 0 Refills may wear up to 12 hours Discontinued Medications: Methylprednisolone (Medrol Dosepak) 4 Mg Tab.ds.pk 0 PO UD, #21 TAB 0 Refills take 6 Pills Day 1, 5 Pills Day 2, 4 Pills Day 3, 3 Pills Day 4, 2 Pills Day 5 and 1 pill Day 6 Discharge Summary: A 60-year-old male with a PMH of HTN, recent lumbar osteomyelitis status post six week antibiotic course at [facility] had presented with acute back pain. Patient was initially admitted for the concern of epidural abscess which was ruled out with the MRI. Until then patient was initially started on cefepime and vancomycin. With recommendations from ID, cefepime has been discontinued and also in consult for rash it has been discontinued. Later, ID recommended he does not require anymore antibiotics and therefore has been discharge considering hemodynamically stable with some pain medications and [id number] Benadryl for rash. Patient's other medical conditions were managed as per home meds. Patient is hemodynamically stable for discharge. Physical examination at discharge: General: Alert, awake, oriented, not in acute distress HEENT: PERRLA, no icterus, pallor, lymphadenopathy, carotid bruit Respiratory system: Bilateral vesicular breath sounds heard, no adventitious breath sounds CVS: S1-S2 heard, no murmurs/rubs/gallop GI: Soft, nontender, no organomegaly, no guarding/rigidity, bowel sounds present Neuro: Tenderness to palpation on the lower back, No focal neurological deficits present Mental status exam: alert and consciousness, orientation, memory, speech - Cranial nerve test: Cranial nerves 2-12 intact - Motor system: Nutrition, Tone 3+, Power 5/5, no involuntary movements - Sensory system: Intact - Reflex testing: Biceps, triceps and knee reflexes 2+ - Cerebellar: Normal Extremities: Bilateral erythematous small papules present in clusters with the itching or tenderness present in the knee region. Skin: Warm and dry Labs at discharge: WBC: 10.4, H/H: 12.3/36 platelet count: 557 Sodium: 138, potassium: 4.4, BUN: 24, creatinine: 0.69 Imaging: Lumbar spine MRI: Discitis osteomyelitis at L4-5 with significant surrounding paravertebral edema. Bilateral pedicle and lamina extension with the additional extension into the spinous processes. Echo: LVEF is 60%. Facial bones x-ray: Postsurgical changes with left mandibular and left frontal craniotomy metallic hardware. Lumbar spine CT:Multilevel degenerative changes. No acute fracture. Diffuse endplate irregularities at L4-5 associated with diffuse paravertebral edema /stranding extending into prevertebral region and into the adjacent psoas musculature. Findings raising suspicion for discitis osteomyelitis. No significant associated height loss. Limited evaluation for fluid collection on this noncontrast study. Underlying canal stenosis not well assessed on CT. Medications can be found above patient is discharged home with the following recommendations: Follow up with PCP within two weeks of discharge. You do not require anymore antibiotics. We gave you pain medications for chronic low back pain secondary to osteomyelitis. Return to ER in view of onset of fever chills rigors. *Problems/Diagnosis: (1) Osteomyelitis Status: Acute (2) Low back pain Status: Acute Total Time Spent on D/C: > 30 Minutes Addendum recent osteo of lumbar spine, s/p completed treatment recently with no reacutization Date of Service: Oct 14, 2025 Billing Provider: RUPA RICHEY MD Common Visit Codes: [id number] DISCH DAY >30min PAIGE ROJAS, RES Oct 14, 2025 18:07 RUPA RICHEY MD Oct 15, 2025 06:29
--- NOTE | 2025-10-14 22:40 | PROGRESS NOTE ---
Progress Note ID Providers to CC ~ Progress Note Progress Note: Antibiotic Days Vanco 3 Lines PIV Micro 10/10 Blood- ngtd Subjective: Patient is a 60 year old homeless male who is known to me due to recent treatment for MSSA septicemia and L4-5 discitis/osteomyelitis. He initially presented to [facility] towards the end of July and completed a 6 week course of Oxacillin at [facility] on 09/22/25. He was doing quite well at that time though has complained of worse pain control since his discharge. ER note indicates that he was sent to the ER for leukocytosis and it is noted that he had a value of 15 at that time. Spinal imaging showed discitis/osteomyelitis which is expected on this timeline. Nonetheless, he was admitted on Vancomycin and he received a dose of Cefepime. Today his WBC count is normal though his Eosinophils have jumped consistent with a new skin rash (though this is better than when he was at [facility]). ESR only 26 Objective Vitals: Afebrile, 60, 20, 109/70, 95% on RA Alert, NAD nc/at, normal conjunctiva, no oral lesions Regular Clear anteriorly Soft, nontender Skin rash on upper back and legs, technically better than at [facility] when he was messing with it PIV ok Laboratory Tests 10/14/25 05:49 10/12 MRI 1. Discitis osteomyelitis at L4-5 with significant surrounding paravertebral edema. Bilateral pedicle and lamina extension with the additional extension into the spinous processes. 2. No epidural abscess. 3. Mild relative circumferential spinal canal narrowing at L4-5. Assessment // MSSA L4-5 discitis/osteomyelitis s/p 6 weeks of Oxacillin, completed on 09/22/25. It is expected that his imaging is not yet better on this timeline. ESR now 26 // Eosinophilia in the setting of a skin rash // Homelessness // NKDA Plan -He has completed his course of antibiotics and they can be discontinued at this time -Pain control discussed with primary team -Monitor neuro exam, rash -Physical therapy -Thank you for the chance to participate in your patient's care KATHRYN VAN DO Oct 14, 2025 22:40
== END 2025-10-14 15:38 | disposition home or self-care (01) | DRG 344 ==
LOC: ER 17:23 → ED HOLD 23:10 → ORTHO 4S 10-11 00:40
PROVIDERS: ADMIT Internal Medicine; ATTEND Internal Medicine
DX: M46.26 Osteomyelitis of vertebra, lumbar region (principal); E44.0 Moderate protein-calorie malnutrition; D72.10 Eosinophilia, unspecified; Z59.00 Homelessness unspecified; M46.46 Discitis, unspecified, lumbar region; R21 Rash and other nonspecific skin eruption; Z68.25 Body mass index [BMI] 25.0-25.9, adult
CPT/HCPCS: 36415; 70140; 72131; 72148; 80053; 80061; 80202; 80305; 81003; 83036; 83605; 83735; 84145; 85007; 85025; 85651; 86140; 87040; 87081; 93306; 99285; A6258; G0378; J0692; J0696; J1644; J2270; J3373; J3375; J7030; J7512